=== PATIENT | female | born 1975 | race Caucasian/White ===

== ENCOUNTER 2016-08-21 13:02 | Emergency (ER) | payer BC, OTHER ==
[~2016-08-21] VITALS: Ht 157.5 cm; Wt 97.0 kg
[~2016-08-21 13:02] MED LIST: ALBUAER2 INH; CYAN500T13 PO; DIPH25CA65 PO; EPP3/2 IM; FURO-85 PO; PRM9 PO; RIZA10TA18 PO; TOPI100T20 PO
[2016-08-21 13:04] VITALS: TEMP 36.7; Ht 157.5 cm; Wt 97.0 kg
[2016-08-21 13:20] VITALS: O2SAT 99
[2016-08-21] MEDS ORDERED: ACETAMINOPHEN 325 MG TAB PO STA (13:23)
[2016-08-21 13:41] LABS: HEMATOCRIT 39.7 % (37-47); MEAN CORPUSCULAR HEMOGLOBIN 27.1 pg (25-34); MEAN PLATELET VOLUME 9.6 fL (7.4-10.4); PLATELET COUNT 419 K/uL (130-400); RED BLOOD COUNT 4.84 M/uL (4.2-5.4)
[2016-08-21 13:59] LABS: BLOOD UREA NITROGEN 14 mg/dl (7-18); BUN/CREATININE RATIO 13.5 (10-20); CALCIUM 9.4 mg/dl (8.5-10.1); CARBON DIOXIDE 29 mmol/L (21-32); CHLORIDE 103 mmol/L (98-107); GLUCOSE 97 mg/dl (70-99); POTASSIUM 3.4 mmol/L (3.5-5.1); SODIUM 139 mmol/L (136-145)
--- NOTE | 2016-08-21 14:03 | DIAGNOSTIC IMAGING REPORT ---
CHEST 2 VIEWS ROUTINE CLINICAL HISTORY: Atypical chest pain COMPARISON STUDY: No previous studies for comparison. FINDINGS: The cardiac and mediastinal contours are normal. There is no evidence of focal pulmonary consolidation. There is no evidence of failure. No pleural effusions are visualized.[ IMPRESSION: No active disease in the chest. Electronically signed by: Jus Neal M.D. 08/21/2016 2:02 PM Dictated Date/Time: 08/21/2016 2:01 PM
[2016-08-21] MEDS ORDERED: ACET-1311 PO (14:13)
[2016-08-21] MEDS ORDERED: VNTHFA/IN INH (14:13)
[2016-08-21] MEDS ORDERED: VERA240T20 PO (14:13)
[2016-08-21] MEDS ORDERED: FRS/40 PO (14:13)
[2016-08-21] MEDS ORDERED: ACETAMINOPHEN 500 MG TAB PO ONE ×2 (14:14)
[2016-08-21] MEDS ORDERED: NAPROXEN 250 MG TAB PO STA (14:46)
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
[2016-08-21 15:03] VITALS: BP 140/88; PULSE 88; O2SAT 97
== END 2016-08-21 15:04 | disposition home or self-care (01) ==
LOC: C.EDB 13:04 → C.EDA 15:04
DX: M94.0 Chondrocostal junction syndrome [Tietze] (principal); M19.90 Unspecified osteoarthritis, unspecified site; Z83.3 Family history of diabetes mellitus; Z82.49 Family history of ischemic heart disease and other diseases of the circulatory system

== ENCOUNTER 2017-08-25 09:07 | Emergency (ER) | payer BC ==
[~2017-08-25] VITALS: Ht 157.5 cm; Wt 96.5 kg
[~2017-08-25 09:07] MED LIST changes: +ACET-1311 PO; -ALBUAER2 INH; -CYAN500T13 PO; -DIPH25CA65 PO; -EPP3/2 IM; +FRS/40 PO; -FURO-85 PO; -PRM9 PO; +VERA240T20 PO; +VNTHFA/IN INH
[2017-08-25 09:11] VITALS: TEMP 36.7; Ht 157.5 cm; Wt 96.5 kg
[2017-08-25 10:07] LABS: HEMOGLOBIN 12.1 g/dL (12.0-16.0); MEAN CELL VOLUME 84.6 fL (80-100); MEAN CORPUSCULAR HEMOGLOBIN 26.9 pg (25-34); MEAN CORPUSCULAR HGB CONC 31.8 g/dl (32-36); MEAN PLATELET VOLUME 10.1 fL (7.4-10.4); PLATELET COUNT 328 K/uL (130-400); RED CELL DISTRIBUTION WIDTH CV 14.5 % (11.5-14.5); RED CELL DISTRIBUTION WIDTH SD 44.7 fL (36.4-46.3)
[2017-08-25 10:16] LABS: PTT PATIENT 26.4 SECONDS (21.0-31.0)
--- NOTE | 2017-08-25 10:19 | DIAGNOSTIC IMAGING REPORT ---
CHEST 2 VIEWS ROUTINE HISTORY: Mid sternal chest pain COMPARISON: Chest 08/21/2016. FINDINGS: No pneumothorax. No pleural effusions. Stable right basilar linear densities suggesting subsegmental atelectasis or scarring. The lungs are otherwise clear. The heart remains borderline enlarged. Mild retrosternal soft tissue thickening. This may correspond to the patient's history of a sternal fracture. The sternum is not well-visualized due to overlapping soft tissue. IMPRESSION: Mild retrosternal soft tissue thickening. This is likely a result of patient's history of a sternal fracture. Otherwise, no acute process within the chest. Of note, the sternum is not well visualized due to the overlapping soft tissue. Electronically signed by: Charles Milner M.D. 08/25/2017 10:17 AM Dictated Date/Time: 08/25/2017 10:14 AM
[2017-08-25 10:26] LABS: ALBUMIN 3.9 gm/dl (3.4-5.0); ALKALINE PHOSPHATASE 137 U/L (45-117); ALT/SGPT 25 U/L (12-78); AST/SGOT 13 U/L (15-37); BLOOD UREA NITROGEN 18 mg/dl (7-18); CARBON DIOXIDE 28 mmol/L (21-32); CKMB < 1.0 ng/ml (0.5-3.6); CREATININE 0.99 mg/dl (0.60-1.20); GLUCOSE 95 mg/dl (70-99); POTASSIUM 3.9 mmol/L (3.5-5.1); SODIUM 141 mmol/L (136-145); TOTAL PROTEIN 7.4 gm/dl (6.4-8.2)
[2017-08-25 11:11] VITALS: BP 133/87; PULSE 68; O2SAT 98
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
== END 2017-08-25 11:13 | disposition home or self-care (01) ==
LOC: C.EDB 09:08
DX: R07.89 Other chest pain (principal); M19.90 Unspecified osteoarthritis, unspecified site